=== PATIENT | female | born 1960 | race Caucasian/White ===

== ENCOUNTER → 2020-08-26 | Outpatient (CLI) | payer OTHER | LOC: LAB 11:06 | PROVIDERS: ATTEND Anesthesiology | DX: Z01.812 Encounter for preprocedural laboratory examination (principal); Z20.822 Contact with and (suspected) exposure to COVID-19 ==

== ENCOUNTER → 2021-02-09 | Outpatient (CLI) | payer OTHER | LOC: ULTRA 09:01 | PROVIDERS: ATTEND Nurse Practitioner | DX: K80.80 Other cholelithiasis without obstruction (principal); I72.9 Aneurysm of unspecified site; R55 Syncope and collapse; E78.00 Pure hypercholesterolemia, unspecified; I67.1 Cerebral aneurysm, nonruptured ==